=== PATIENT | male | born 1960 | race Caucasian/White ===

== ENCOUNTER 2020-10-12 14:55 | Inpatient (IN) ==
[2020-10-12] MEDS ORDERED: SODIUM CHLORIDE 0.9% 1000ML 1,000 ML IV ONE (16:34)
--- NOTE | 2020-10-12 16:40 | Emergency Department Note ---
Impression & Plan Weakness, Hypercalcemia, Hypokalemia, Hypophosphatemia ED Provider Note NAME: HECTOR MIXON AGE: 60 SEX: M : 1960 ARRIVES VIA: Walk-In INFORMANT: [Patient] ED PROVIDER(S): [Rashel Dillard MD] CHIEF COMPLAINT: Abnormal labs HISTORY OF PRESENT ILLNESS: The patient is a 60-year-old male who has noticed weakness. He has had some weight loss although, some of this has been intentional. The patient was told by his primary doctor's office that he likely has a malignancy, the site of the malignancy though is unknown. He went to the cancer center today and had some outpatient laboratory work. He was called and told to come back to the hospital as his calcium was critically high. The patient states that he did have prostate cancer however, the prostate was removed years ago. He has not had shortness of breath or cough. No fever, chills or congestion. He has had no urinary complaints. No vomiting or diarrhea. He has had a slightly decreased appetite. REVIEW OF SYSTEMS: See HPI for pertinent positives and negatives. A total of ten systems were reviewed and were otherwise negative. PMHx/PSHx: See Below SOCIAL HISTORY: See Below. PHYSICAL EXAM: GENERAL: Patient is in no acute distress. HEENT: No acute trauma, normocephalic atraumatic, mucous membranes moist, no nasal congestion, no scleral icterus. NECK: No stridor, no adenopathy, no meningismus, trachea is midline. LUNGS: Clear to auscultation bilaterally, no wheeze, no rhonchi, breath sounds equal. HEART: Without murmurs gallops or rubs, regular rate and rhythm. ABDOMEN: Soft, nontender, bowel sounds positive, no hernias, no peritonitis. EXTREMITIES: No cyanosis or edema, full range of motion of all the joints without pain or difficulty, no signs for acute trauma. NEUROLOGIC: Oriented x 3, no acute motor or sensory deficits, no focal weakness. SKIN: No rash, no jaundice, no diaphoresis. DIFFERENTIAL DIAGNOSIS: Infection, dehydration, metabolic abnormality, hypo/hyperglycemia, urgency, electrolyte disturbance, anemia, hypoxia, cardiac sources, intracerebral event, toxicologic, neurologic, as well as other pathologies. EMERGENCY DEPARTMENT COURSE/PROCEDURES: ECG: Indication was weakness. The ECG shows a normal sinus rhythm with some sinus arrhythmia. The rate is 75. There is no ST elevation, no PVCs. The QTc is 410 Continuous Cardiac Monitoring: An order was placed for continuous cardiac monitoring. The monitor shows a rate of 76 with normal sinus rhythm. MEDICAL DECISION MAKING: I was able to review the outpatient labs from earlier today. There was no leukocytosis. A very mild anemia was noted. There was a normal platelet count. There were some subtle LFT elevations, the bilirubin was normal. The PSA was normal. Calcium was elevated at 14.3. I did order some repeat laboratory testing. The calcium returned elevated at 15.8. The ionized calcium was high at 1.9. Phosphorus level was low at 1.8. Potassium was somewhat low at 3. There was no kidney failure. Covid testing returned negative. The patient received 1 L of IV saline to help with hydration and to help reduce his calcium elevation. The patient does require a hospital stay. His calcium is critically high. He requires a work-up to determine the source of the hypercalcemia, certainly, malignancy is a concern. The patient did have an ECG performed. This showed a sinus rhythm, no arrhythmia, no acute ischemia. The patient is aware of his findings, I spoke with case management. The on-call hospitalist was consulted. Past Med/Surg History Medical History Diabetes mellitus, type 2 Hyperlipidemia Hypertension Obesity, morbid Prostate cancer 2015--sx Sleep apnea cpap Surgical History History of arthroscopy of right knee History of carpal tunnel release right wrist History of colonoscopy History of endoscopic sinus surgery History of prostate biopsy malignant History of prostatectomy 2015 History of repair of anterior cruciate ligament of right knee History of tympanoplasty of right ear Hx of vasectomy Family History Grandmother Family history of diabetes mellitus paternal Father Family hx of colon cancer Social History Smoking Status: Never smoker Second Hand Exposure: Yes (father smoked); Hx Alcohol Use: Yes Alcohol type: beer Hx Substance Use: No Preferred Language: Kyrgyz Communication Ability: Effective Md Urologist Required: No Beliefs That Will Affect Care: None Current Living Situation: Spouse Feels Safe at Home: Yes Assistive Devices: CPAP Allergies Allergies Allergy/AdvReac Type Severity Reaction Status Date / Time Bactrim Allergy Unknown RASH Verified 08/13/15 08:50 sulfamethoxazole Allergy Unknown RASH Verified 10/12/20 16:58 trimethoprim Allergy Unknown RASH Verified 10/12/20 16:58 lisinopril AdvReac Mild hives Verified 10/12/20 16:58 Prinivil Allergy Unknown Uncoded 10/12/20 16:58 Home Meds Home Medications Medication Instructions Recorded Confirmed Culturelle 1 cap PO QAM 08/31/18 10/12/20 Lantus U-100 Insulin 80 unit SUBCUT HS 08/31/18 10/12/20 amlodipine 10 mg PO QAM 08/31/18 10/12/20 atorvastatin 10 mg PO HS 08/31/18 10/12/20 cholecalciferol (vitamin D3) 2,000 unit PO BID 08/31/18 10/12/20 docusate sodium 100 mg PO QAM 08/31/18 10/12/20 insulin aspart U-100 [Novolog 1 sliding scale dose SUBCUT UD 08/31/18 10/12/20 U-100 Insulin aspart] metformin 1,000 mg PO BID 08/31/18 10/12/20 tadalafil [Cialis] 20 mg PO DAILY PRN 08/31/18 10/12/20 valsartan-hydrochlorothiazide 1 tab PO QAM 08/31/18 10/12/20 [Diovan HCT] Results & Data (ED) Vital Signs Vital Signs - 24 hr 10/12/20 15:04 10/12/20 17:04 10/12/20 17:31 Temperature 36.5 C Temperature Source Oral Pulse Rate 100 H 74 Pulse Rate [Apical] 79 Pulse Rate from SpO2 Sensor 75 Pulse Rhythm [Apical] Regular Pulse Strength [Apical] Normal Respiratory Rate 18 16 18 Respiratory Effort / Characteristics Non-Labored Spontaneous Non-Labored Spontaneous Respiratory Depth Normal Normal Respiratory Pattern Regular Blood Pressure 166/84 H 131/73 Blood Pressure [Right Arm] 148/73 H Blood Pressure Mean 111 89 Blood Pressure Mean [Right Arm] 98 Blood Pressure Position [Right Arm] Semi-fowlers Pulse Oximetry 96 95 97 Oxygen Delivery Method Room Air Room Air Sepsis Recent Fever Within 48 Hours No Sepsis New/Unexplained Change in Mental Status No Sepsis Action Taken by Nursing No Action Required 10/12/20 17:46 10/12/20 17:50 10/12/20 17:53 Temperature Temperature Source Pulse Rate 72 72 72 Pulse Rate [Apical] Pulse Rate from SpO2 Sensor 72 Pulse Rhythm [Apical] Pulse Strength [Apical] Respiratory Rate 20 19 19 Respiratory Effort / Characteristics Respiratory Depth Respiratory Pattern Blood Pressure 140/79 Blood Pressure [Right Arm] Blood Pressure Mean 102 Blood Pressure Mean [Right Arm] Blood Pressure Position [Right Arm] Pulse Oximetry 99 Oxygen Delivery Method Sepsis Recent Fever Within 48 Hours Sepsis New/Unexplained Change in Mental Status Sepsis Action Taken by Nursing 10/12/20 17:54 10/12/20 18:00 10/12/20 18:01 Temperature Temperature Source Pulse Rate 71 73 79 Pulse Rate [Apical] Pulse Rate from SpO2 Sensor 72 71 79 Pulse Rhythm [Apical] Pulse Strength [Apical] Respiratory Rate 18 21 20 Respiratory Effort / Characteristics Respiratory Depth Respiratory Pattern Blood Pressure 139/75 Blood Pressure [Right Arm] Blood Pressure Mean 90 Blood Pressure Mean [Right Arm] Blood Pressure Position [Right Arm] Pulse Oximetry 99 97 100 Oxygen Delivery Method Sepsis Recent Fever Within 48 Hours Sepsis New/Unexplained Change in Mental Status Sepsis Action Taken by Nursing 10/12/20 18:30 10/12/20 18:31 10/12/20 18:58 Temperature Temperature Source Pulse Rate 77 78 Pulse Rate [Apical] Pulse Rate from SpO2 Sensor 78 78 Pulse Rhythm [Apical] Pulse Strength [Apical] Respiratory Rate 17 16 Respiratory Effort / Characteristics Respiratory Depth Respiratory Pattern Blood Pressure 162/82 H Blood Pressure [Right Arm] Blood Pressure Mean 114 Blood Pressure Mean [Right Arm] Blood Pressure Position [Right Arm] Pulse Oximetry 95 97 Oxygen Delivery Method Room Air Sepsis Recent Fever Within 48 Hours Sepsis New/Unexplained Change in Mental Status Sepsis Action Taken by Group Home Medications Current Medication List: was personally reviewed by me Laboratory Data Attestation: I reviewed the patient's lab results. Result diagrams: 10/12/20 17:04 10/12/20 17:04 Lab Results 10/12/20 10/12/20 10/12/20 Range/Units 17:04 17:47 17:47 Sodium 138 (136-145) mmol/L Potassium 3.0 L (3.5-5.1) mmol/L Chloride 104 (98-107) mmol/L Carbon Dioxide 27 (21-32) mmol/L Anion Gap 8.0 (3-11) BUN 11 (7-18) mg/dl Creatinine 1.34 (0.6-1.4) mg/dl Est Cr Clr Drug Dosing Not Reportable Est GFR ( Amer) 65.3 Est GFR (Non-Af Amer) 56.4 BUN/Creatinine Ratio 8.5 L (10-20) Glucose 131 H (70-99) mg/dl Calcium 15.8 H* (8.5-10.1) mg/dl Ionized Calcium 1.90 H* (1.12-1.32) mmol/L Phosphorus 1.8 L (2.5-4.9) mg/dl Magnesium 1.9 (1.8-2.4) mg/dl SARS-CoV-2 Ag (Rapid) Negative (Negative) Administered Medications Discontinued Medications Sodium Chloride (Nss 1000ml) 1,000 mls @ 999 mls/hr IV .Q1H1M ONE Stop: 10/12/20 17:34 Last Infusion: 10/12/20 18:35 Dose: 0 mls/hr Documented by: [id number] Admin: 10/12/20 17:19 Dose: 999 mls/hr Documented by: [id number] Discharge Plan Visit Data Chief Complaint: Abnormal Labs/Diagnostic Testing Stated Complaint: HYPERCALCEMIA ED Provider: Rashel Dillard Discharge Problem: Weakness, Hypercalcemia, Hypokalemia, Hypophosphatemia Patient Disposition: Admitted As Inpatient Condition: Good Discharge Instructions Interventions: ED Discharge Assessment Last Done: 10/12/20 18:58 Forms Stand Alone Forms: [facility] Prescriptions Prescriptions: No Action Lantus U-100 Insulin 100 unit/mL Solution 80 unit SUBCUT HS RF: 0 atorvastatin 10 mg Tablet 10 mg PO HS RF: 0 valsartan-hydrochlorothiazide [Diovan HCT] 160-12.5 mg Tablet 1 tab PO QAM RF: 0 amlodipine 10 mg Tablet 10 mg PO QAM RF: 0 insulin aspart U-100 [Novolog U-100 Insulin aspart] 100 unit/mL Solution 1 sliding scale dose SUBCUT UD RF: 0 metformin 1,000 mg Tablet 1,000 mg PO BID RF: 0 Culturelle 10 billion cell Capsule 1 cap PO QAM RF: 0 docusate sodium 100 mg Tablet 100 mg PO QAM RF: 0 tadalafil [Cialis] 20 mg Tablet 20 mg PO DAILY PRN (Reason: Sexual Activity) RF: 0 cholecalciferol (vitamin D3) 2,000 unit Tablet 2,000 unit PO BID RF: 0 Referrals Referrals: Kelly Dupree CRNP [Primary Care Provider] -
[2020-10-12 17:42] LABS: Blood Urea Nitrogen 11 mg/dl (7-18); Carbon Dioxide 27 mmol/L (21-32); Chloride 104 mmol/L (98-107); Est GFR (African American) 65.3; Est GFR (Non-African American) 56.4; Glucose 131 mg/dl (70-99); Magnesium 1.9 mg/dl (1.8-2.4); Phosphorus 1.8 mg/dl (2.5-4.9); Sodium 138 mmol/L (136-145)
[2020-10-12 18:34] LABS: BUN Creatinine Ratio 8.5 (10-20); Calcium 15.8 mg/dl (8.5-10.1)
--- NOTE | 2020-10-12 18:35 | History & Physical Report ---
Date of Service October 12, 2020 Assessment & Plan (1) Hypercalcemia: Mr. Noe is a 60 yo M with a PMHx of prostate cancer s/p prostatectomy 5 years ago who was admitted for hypercalcemia. - Ca level 14.3 on outpatient labs today, 15.78 repeat measurement; albumin normal - ionized calcium elevated to 1.9 - intact PTH level ordered - 25 hydroxvitamin D level ordered - given 1 liter of normal saline in the ED; will bolus with additional 2 liters of normal saline and start mIVF at 200mls hour - no history of CHF; if concern for volume overload, recommend adding IV lasix - if PTH level returns low, recommending ordering Zoledronic Acid and checking PTHrP level + 1,25 hydroxyvitamin D - as for the etiology: may be secondary to primary hyperparathyroidism vs. non- PTH mediated hypercalcemia (primary malignancy, vit D intoxication, granulomatous disease) - will hold home Valsartan-HCTZ combo pill, vit D supplement - hematology/oncology consulted; SPEP/UPEP, serum and urine immunofixation pending - trend level (2) History of prostate cancer: - diagnosed 5 years ago - s/p prostatectomy - PSA checked annual for last 5 years, all normal (3) Hypokalemia: - K low at 3.0; replacement ordered - CMP in AMP (4) Insulin dependent diabetes mellitus: - continue home dose of Lantus insulin (80 units qhs)+ sliding scale - A1c in am - hold home metformin - carb consistent diet - continue statin, ARB (5) Hypertension: - continue home amlodipine - hold home valsartan-HCTZ combo (givne HCTZ promotes calcium reabsorption). Will order Valsartan alone (6) Hypophosphatemia: - phos mildly low at 1.8 Dispo: Med/Surg with tele Diet: Carb consistent 2 Dvt ppx: SCDs, lovenox Cde: DNR/DNI, discussed with patient History of Present Illness Primary Care Provider: HERNANDO Winters Mr. Noe is a 60 yo M with a PMHx of prostate cancer status post prostatectomy 5 years ago who presented to the emergency department at the direction of Dr. Anderson from the cancer center earlier today. Mr. Noe was referred to the cancer center for evaluation of hypercalcemia detected on routine labwork ordered by his PCP KIRSTIN Winters. At his appointment with Dr. Anderson today at the cancer center, Mr. Noe's calcium level returned at 14.3, prompting Dr. Anderson's advice to come to the ED. Mr. Noe reports a history of fatigue over the past month, stating "all I ever seem to want to do is sleep." He reports a weight loss of 14 pounds over the past 3 months, but this was intentional (he has been walking more and trying to cut back on sugar/carb intake due to an elevated HbA1c). He also endorses constipation. He denies any muscle weakness, bone pain, or diminished concentration. He has had his PSA level checked annually since have his prostatectomy and states all his levels have been normal. He reports developing some urinary incontinence over the past two months. Aside from his prostate cancer, he has no other personal history of cancer diagnoses. Family history - Father diagnosed with colon cancer at age 72. Mr. Noe has had several colonoscopies - most recent in 2019. Meds- he is on Valsartan-HCTZ combo for HTN. He takes a vitamin D3 supplement. He is not on a calcium supplement. Not on lithium. ED Course: Ca level 15.7, ionized Ca at 1.9. Albumin normal at 4.0. Mag normal. Phos low at 1.8. Potassium low at 3.0. WBC normal. Hgb mildly low at 13.2. UA pending. UPEP and SPEP pending. IgG low, IgA low, IGM normal. Serum and Urine immunofixation and free kappa and jerome light chains pending. CXR showing no active disease. EKG normal sinus rhythm at 75 bpm without ectopy or ST segment changes. He was bolused with 1 liter of normal saline. Allergies Allergy/AdvReac Type Severity Reaction Status Date / Time Bactrim Allergy Unknown RASH Verified 08/13/15 08:50 sulfamethoxazole Allergy Unknown RASH Verified 10/12/20 16:58 trimethoprim Allergy Unknown RASH Verified 10/12/20 16:58 lisinopril AdvReac Mild hives Verified 10/12/20 16:58 Prinivil Allergy Unknown Uncoded 10/12/20 16:58 Home Medications Medication Instructions Recorded Confirmed Type Culturelle 1 cap PO QAM 08/31/18 10/12/20 History Lantus U-100 Insulin 80 unit SUBCUT HS 08/31/18 10/12/20 History amlodipine 10 mg PO QAM 08/31/18 10/12/20 History atorvastatin 10 mg PO HS 08/31/18 10/12/20 History cholecalciferol (vitamin D3) 2,000 unit PO BID 08/31/18 10/12/20 History docusate sodium 100 mg PO QAM 08/31/18 10/12/20 History insulin aspart U-100 [Novolog 1 sliding scale dose SUBCUT UD 08/31/18 10/12/20 History U-100 Insulin aspart] metformin 1,000 mg PO BID 08/31/18 10/12/20 History tadalafil [Cialis] 20 mg PO DAILY PRN 08/31/18 10/12/20 History valsartan-hydrochlorothiazide 1 tab PO QAM 08/31/18 10/12/20 History [Diovan HCT] Past Med/Surg History Medical History Diabetes mellitus, type 2 Hyperlipidemia Hypertension Obesity, morbid Prostate cancer 2014--sx Sleep apnea cpap Surgical History History of arthroscopy of right knee History of carpal tunnel release right wrist History of colonoscopy History of endoscopic sinus surgery History of prostate biopsy malignant History of prostatectomy 2014 History of repair of anterior cruciate ligament of right knee History of tympanoplasty of right ear Hx of vasectomy Family History Grandmother Family history of diabetes mellitus paternal Father Family hx of colon cancer Social History Smoking Status: Never smoker Second Hand Exposure: No; Do You Dip or Chew Tobacco: No; Tobacco Cessation Education Requested by Patient: No Hx Alcohol Use: Yes Alcohol type: beer Hx Substance Use: No Preferred Language: Trinidadian Communication Ability: Effective Dry Starch Operator Required: No Beliefs That Will Affect Care: None Current Living Situation: Spouse Feels Safe at Home: Yes Safety Concerns: Feels Safe At This Time Assistive Devices: CPAP Assistive Devices Comment: reading glasses Review of Systems Constitutional: + fatigue; no fever, no chills, no sweats and no weakness Gastrointestinal: + constipation Genitourinary: no urinary frequency Physical Exam Constitutional: well developed, well nourished, + obese and cooperative; no acute distress Eyes: + anicteric sclerae ENMT: external ear and nose normal, oropharynx normal Neck: normal visual inspection and trachea midline Respiratory: normal respiratory effort, lungs clear to auscultation Auscultation: no crackles, no rales, no rhonchi and no wheezes Cardiovascular: RRR, no murmur, no edema Heart Sounds: normal S1 and normal S2 Vessels: normal carotid upstroke; no carotid bruit Extremities: no pedal edema Gastrointestinal (Abdomen): normal bowel sounds, soft, nontender, no hepatosplenomegaly Skin: no rashes, warm and dry Psychiatric: A+Ox3, euthymic affect Genitourinary: no CVA tenderness Results & Data Results & Data ([facility]) Vital Signs (Past 12 Hours) Vital Signs Temp Pulse Pulse Resp BP BP Pulse Ox 10/12/20 17:53 72 19 140/79 99 10/12/20 17:50 72 19 10/12/20 17:46 72 20 10/12/20 17:31 74 18 131/73 97 10/12/20 17:04 79 16 148/73 H 95 10/12/20 15:04 36.5 C 100 H 18 166/84 H 96 Supervising Physician Co-Signing Physician Notes I personally saw and examined the patient. I verified all wolfe points and agree with resident physician Dr. Clarke with the following exceptions and/or additions: 60-year-old male referred from oncology due to hypercalcemia. Relatively asymptomatic from this although he has been having fatigue and constipation for the last month. No bone pain, change in mood. O/E obese male, chest CTAB, HS1+2, no murmurs abdo SNT, BS normal. Hypercalcemia - discontinue vitamin D and hydrochlorothiazide -doubtful these are causing the hypercalcemia alone. PTH low, vitamin D normal. Advised IV fluids as above with repeat calcium/albumin level in a.m. zoledronic acid given once PTH confirmed low. Will get PTH related peptide result from [facility] outpatient notes. Resident Activity Tracking Resident Involvement: Resident Care Provided Care Provided: [facility] Medicine
[2020-10-12] MEDS ORDERED: SODIUM CHLORIDE 0.9% 1000ML 2,000 ML IV ONE ×2 (19:22→19:49)
[2020-10-12] MEDS ORDERED: GLUCOSE 40% GEL 15 GM TUBE PO PRN (19:49)
[2020-10-12] MEDS ORDERED: POLYETHYLENE (MIRALAX) 17 GM PACK PO PRN (19:49)
[2020-10-12] MEDS ORDERED: CARBOHYDRATES FOR HYPOGLYCEMIA PO PRN (19:49)
[2020-10-12] MEDS ORDERED: ONDANSETRON INJ 2 MG/ML 2 ML VIAL IV PRN (19:49)
[2020-10-12] MEDS ORDERED: TADALAFIL 20 MG PO PRN (19:49)
[2020-10-12] MEDS ORDERED: GLUCAGON FOR INJ 1 MG VIAL SQ PRN (19:49)
[2020-10-12] MEDS ORDERED: GLUCOSE 10 TABS/TUBE PO PRN (19:49)
[2020-10-12] MEDS ORDERED: ACETAMINOPHEN 325 MG TAB PO PRN (19:49)
[2020-10-12] MEDS ORDERED: DEXTROSE 50% 50 ML SYRINGE IV PRN (19:49)
[2020-10-12] MEDS ORDERED: POTASSIUM CHLORIDE CRTAB 20 MEQ TABCR PO STA (20:04)
[2020-10-12] MEDS ORDERED: POTASSIUM PHOS 3 MMOL/1 ML INFUSION IV STA (20:05)
[2020-10-12] MEDS ORDERED: POTASSIUM PHOSPHATE 21 MMOL in SODIUM CHLORIDE 0.9% 500 ML IV STA (20:14)
[2020-10-12] MEDS ORDERED: PNEUMOCOCCAL ADMINISTRATION CHARGE ONE (20:30)
[2020-10-12] MEDS ORDERED: PNEUMOCOCCAL POLYSACCHARIDES 25 MCG/0.5 ML VIAL/SYR IM ONE (20:30)
[2020-10-12] MEDS ORDERED: LANTUS PER UNIT CHARGE SQ SCH (21:00)
[2020-10-12] MEDS: ATORVASTATIN 10 MG TAB PO SCH (21:13)
[2020-10-12] MEDS: INSULIN ASPART 100 UNITS/ML 3 ML PEN SC SCH (21:15)
[2020-10-12] MEDS: SODIUM CHLORIDE 0.9% 1000ML 1,000 ML IV SCH (21:32)
[2020-10-12] MEDS ORDERED: ZOLEDRONIC ACID 5 MG in EMPTY BAG 1 ML IV ONE (22:33)
[2020-10-13 00:53] LABS: Albumin Globulin Ratio 1.1 (0.9-2); Albumin Level 3.1 gm/dl (3.4-5.0); BUN Creatinine Ratio 8.1 (10-20); Bilirubin,Total 0.5 mg/dl (0.2-1); Calcium 13.5 mg/dl (8.5-10.1); Creatinine Clr Calc Pharmacy 79.2 ml/min; Est GFR (African American) 80.3; Est GFR (Non-African American) 69.3; Globulin 2.8 gm/dl (2.5-4.0); Potassium 2.9 mmol/L (3.5-5.1); Total Protein 5.9 gm/dl (6.4-8.2)
[2020-10-13] MEDS: SODIUM CHLORIDE 0.9% 1000ML 1,000 ML IV SCH (03:13)
[2020-10-13 07:30] LABS: Estimated Average Glucose 148 mg/dl; Hemoglobin A1C 6.8 % (4.5-5.6)
[2020-10-13 08:09] LABS: Albumin Globulin Ratio 1.1 (0.9-2); Albumin Level 3.2 gm/dl (3.4-5.0); Bilirubin,Total 0.6 mg/dl (0.2-1); Calcium 13.2 mg/dl (8.5-10.1); Creatinine Clr Calc Pharmacy 84.4 ml/min; Est GFR (African American) 86.8; Est GFR (Non-African American) 74.8; Globulin 2.9 gm/dl (2.5-4.0); Phosphorus 1.9 mg/dl (2.5-4.9); Potassium 3.3 mmol/L (3.5-5.1); Prostate Specific Antigen 0.02 ng/ml (0-4); Total Protein 6.1 gm/dl (6.4-8.2)
[2020-10-13] MEDS: VALSARTAN 80 MG TAB PO SCH (08:56)
[2020-10-13] MEDS: amLODIPine BESYLATE 5 MG TAB PO SCH (08:56)
[2020-10-13] MEDS: DOCUSATE SODIUM 100 MG CAP PO SCH (08:56)
[2020-10-13] MEDS: ADVANCED PROBIOTIC 1250 MG CAPSULE PO SCH (08:58)
[2020-10-13] MEDS: ENOXAPARIN INJ 40 MG/0.4 ML SYR SQ SCH (08:59)
[2020-10-13] MEDS: INSULIN ASPART 100 UNITS/ML 3 ML PEN SC SCH ×4 (09:00→20:26)
--- NOTE | 2020-10-13 11:08 | Billing Data ---
Date of Service October 12, 2020 Coding Level of Care Code 79491 Initial Inpt Care Lvl 2
--- NOTE | 2020-10-13 12:45 | Hospitalist Progress Note ---
Date of Service October 13, 2020 Assessment & Plan (1) Hypercalcemia: Improved overnight, but still elevated s/p IVF and zolendronic acid x1 Onc c/s, other labs still pending CT AP, chest pending Bone scan pending PTH is low, vit D WNL HypoPhos (2) History of prostate cancer: PSA essentially neg (3) Hypokalemia: Monitor (4) Insulin dependent diabetes mellitus: A1c 6.8 Pt notes he has been working on portion control, diet, exercise and has lost weight in the last few months (5) Hypertension: continue home meds (6) Hypophosphatemia: Monitor (7) NAZIA (obstructive sleep apnea): CPAP as at home, using [facility] provided equipment currently Describes daytime somnolence and overall fatigue Possibly needs settings adjusted? Overnight pulse ox during admission, likely needs repeat study vs follow up with pulm/sleep medicine for setting adjustment (8) DVT prophylaxis: Lovenox for DVT proph Admission and Anticipated Discharge Date Admission Date: October 12, 2020 Subjective Pt states he feels about his usual. He had a bowel movement this AM after not having one yesterday and feels that this makes him feel better in general. Tolerating PO without issue. Pt denies fever, SOB, chest pain, abd pain, n/v/c/d, LE pain or swelling. States he is generally tired and sleeps for 1-2 hours every afternoon. He also notes that when he sits down to watch television, he falls asleep almost right away. He has NAZIA and states he uses his CPAP every night. Again notes about his weight loss, although he has been working on portion control and sugar/carb intake, as well as walking. He noted a decrease in his A1c during this time and was quite pleased when I told him it was further decreased today. Review of Systems Review of Systems: Pertinent positives and negatives reviewed in HPI--all others negative Physical Exam Constitutional: WD/WN, vitals as above + obese Eyes: normal visual paz by confrontation and + anicteric sclerae Neck: normal visual inspection and trachea midline Respiratory: normal respiratory effort, lungs clear to auscultation Cardiovascular: Rate/Rhythm: regular rate and regular rhythm Gastrointestinal (Abdomen): Inspection/Auscultation: abdomen not distended Percussion/Palpation: abdomen soft; abdomen nontender Musculoskeletal: Head/Neck/Chest: normocephalic and head atraumatic negative for edema, peripheral pulses intact Skin: no rashes, warm and dry Neurologic: awake; not confused Speech / Cognition: normal speech Psychiatric: A+Ox3, euthymic affect Results & Data Results & Data ([facility]) Vital Signs (Past 12 Hours) Vital Signs Temp Pulse Pulse Resp BP Pulse Ox 10/13/20 11:17 36.9 C 73 20 136/76 97 10/13/20 07:10 36.4 C L 78 18 133/74 95 10/13/20 07:00 69 10/13/20 03:38 36.5 C 65 20 113/68 96 10/13/20 02:32 64 PG Care Time/CCT Total # of Minutes Spent Total Time Spent with Patient: Total time spent is greater than 50% in coordination of care (as documented) at patient's floor/unit and/or counseling patient: Coding Level of Care Code 93314 Subseq Hosp Care Lvl 3 Diagnoses Hypercalcemia E83.52 History of prostate cancer Z85.46 Hypokalemia E87.6 Insulin dependent diabetes mellitus Hypertension I10 Hypophosphatemia E83.39 NAZIA (obstructive sleep apnea) G47.33 DVT prophylaxis Z29.9
--- NOTE | 2020-10-13 14:25 | Electrocardiogram Report ---
Test Reason : Blood Pressure : / mmHG Vent. Rate : 075 BPM Atrial Rate : 075 BPM P-R Int : 204 ms QRS Dur : 110 ms QT Int : 368 ms P-R-T Axes : 047 -17 004 degrees QTc Int : 410 ms Normal sinus rhythm with sinus arrhythmia Nonspecific ST abnormality Abnormal ECG When compared with ECG of 29-JUL-2015 15:56, T wave amplitude has decreased in Anterior leads QT has shortened Confirmed by Han Velasquez ([id number]) on 10/13/2020 2:24:49 PM Referred By: Rahul Anderson Confirmed By:Han Velasquez
--- NOTE | 2020-10-13 14:49 | Electrocardiogram Report ---
Test Reason : Blood Pressure : / mmHG Vent. Rate : 062 BPM Atrial Rate : 062 BPM P-R Int : 204 ms QRS Dur : 108 ms QT Int : 396 ms P-R-T Axes : 046 031 017 degrees QTc Int : 401 ms Normal sinus rhythm Nonspecific ST abnormality Abnormal ECG When compared with ECG of 12-OCT-2020 16:57, (unconfirmed) No significant change was found Confirmed by Han Velasquez ([id number]) on 10/13/2020 2:48:58 PM Referred By: Rahul Anderson Confirmed By:Han Velasquez
[2020-10-13] MEDS ORDERED: IOVERSOL 100ml IV ONE (15:02)
--- NOTE | 2020-10-13 15:22 | Consultation ---
Date of Consultation October 13, 2020 Assessment & Plan (1) Hypercalcemia: 60 y/o male who presents for evaluation of hypercalcemia with low PTH and elevated PTHrp. Worrisome for underlying malignancy. Patient has hx of prostate cancer s/p prostatectomy 5 years ago but his PSA is stable. Patient reports anorexia, fatigue, weight loss, and constipation. No hx of bone pain or bone fractures. - received Zometa x 1 dose - awaiting MM panel - obtain bone scan, CT CAP w/ contrast - went over differential diagnosis of secondary hypercalcemia (malignancy, lymphoma, myeloma, granulomatous disease, etc) - patient can be discharged home when medically stable - followup as an outpatient with Dr. Anderson - discussed with Dr. Chan Present on Admission?: Yes (2) Prostate cancer: Ramon 7 prostate cancer, pT3. S/p prostatectomy in [address] Muñoz stable PSA levels so far Present on Admission?: Yes History of Present Illness Requesting Physician: Nichole Clarke MD Reason for Consultation: Hypercalcemia At tending Physician: Cecile Chan DO History of Present Illness 60 y/o male with hx of prostate cancer status post prostatectomy 5 years ago who was seen in Cancer Clinic by Dr. Anderson for evaluation of hypercalcemia. Mr. Noe was referred by his PCP KIRSTIN Winters. At the cancer center, Mr. Noe's calcium level returned at 14.3, prompting inpatient admission for treatment and further workup. Patient reports a history of fatigue over the past month, stating "all I ever seem to want to do is sleep." He reports a weight loss of 14 pounds over the past 3 months. He also endorses constipation. He denies any muscle weakness, bone pain, or diminished concentration. He has had his PSA level checked annually since have his prostatectomy and states all his levels have been normal. He reports developing some urinary incontinence over the past two months. Aside from his prostate cancer, he has no other personal history of cancer diagnoses. Since admission, patient received IVF and one dose of Reclast. Patient was seen and examined at bedside. Remains stable with no new complaints or symptoms. Allergies Allergy/AdvReac Type Severity Reaction Status Date / Time Bactrim Allergy Unknown RASH Verified 08/13/15 08:50 sulfamethoxazole Allergy Unknown RASH Verified 10/12/20 16:58 trimethoprim Allergy Unknown RASH Verified 10/12/20 16:58 lisinopril AdvReac Mild hives Verified 10/12/20 16:58 Prinivil Allergy Unknown Uncoded 10/12/20 16:58 Home Medications Medication Instructions Recorded Confirmed Type Culturelle 1 cap PO QAM 08/31/18 10/12/20 History Lantus U-100 Insulin 80 unit SUBCUT HS 08/31/18 10/12/20 History amlodipine 10 mg PO QAM 08/31/18 10/12/20 History atorvastatin 10 mg PO HS 08/31/18 10/12/20 History cholecalciferol (vitamin D3) 2,000 unit PO BID 08/31/18 10/12/20 History docusate sodium 100 mg PO QAM 08/31/18 10/12/20 History insulin aspart U-100 [Novolog 1 sliding scale dose SUBCUT UD 08/31/18 10/12/20 History U-100 Insulin aspart] metformin 1,000 mg PO BID 08/31/18 10/12/20 History tadalafil [Cialis] 20 mg PO DAILY PRN 08/31/18 10/12/20 History valsartan-hydrochlorothiazide 1 tab PO QAM 08/31/18 10/12/20 History [Diovan HCT] Patient History Medical History (Updated 10/13/20 @ 15:15 by Rahul Anderson MD) Diabetes mellitus, type 2 Hyperlipidemia Hypertension Obesity, morbid Prostate cancer 2014--sx Sleep apnea cpap Surgical History History of arthroscopy of right knee History of carpal tunnel release right wrist History of colonoscopy History of endoscopic sinus surgery History of prostate biopsy malignant History of prostatectomy 2014 History of repair of anterior cruciate ligament of right knee History of tympanoplasty of right ear Hx of vasectomy Family History Grandmother Family history of diabetes mellitus paternal Father Family hx of colon cancer Social History Smoking Status: Never smoker Second Hand Exposure: No; Do You Dip or Chew Tobacco: No; Tobacco Cessation Education Requested by Patient: No Hx Alcohol Use: Yes Alcohol type: beer Hx Substance Use: No Preferred Language: Setswana Communication Ability: Effective Manager Transportation Required: No Beliefs That Will Affect Care: None Current Living Situation: Spouse Feels Safe at Home: Yes Safety Concerns: Feels Safe At This Time Assistive Devices: CPAP Assistive Devices Comment: reading glasses Review of Systems Review of Systems: All systems reviewed & are unremarkable except as noted in HPI & below Physical Exam Constitutional: WD/WN, vitals as above well developed and well nourished Eyes: PERRL, conjunctivae normal, anicteric sclerae + anicteric sclerae and PERRL ENMT: external ear and nose normal, oropharynx normal Neck: trachea midline, no thyromegaly Respiratory: normal respiratory effort, lungs clear to auscultation Auscultation: lungs clear to auscultation bilaterally Cardiovascular: RRR, no murmur, no edema Rate/Rhythm: regular rate and regular rhythm Gastrointestinal (Abdomen): normal bowel sounds, soft, nontender, no hepatosplenomegaly Musculoskeletal: no cyanosis or clubbing, extremities motor strength 5/5 Skin: no rashes, warm and dry Neurologic: patellar DTR's 2+ bilat, sensation intact Psychiatric: A+Ox3, euthymic affect Lymphatic: no cervical or axillary lymphadenopathy Results & Data ([facility]) Vital Signs (Past 12 Hours) Vital Signs Temp Pulse Pulse Resp BP Pulse Ox 10/13/20 11:17 36.9 C 73 20 136/76 97 10/13/20 07:10 36.4 C L 78 18 133/74 95 10/13/20 07:00 69 10/13/20 03:38 36.5 C 65 20 113/68 96
--- NOTE | 2020-10-13 15:26 | CT Scan Report ---
CT OF THE ABDOMEN AND PELVIS WITH CONTRAST CLINICAL HISTORY: Hypercalcemia. COMPARISON STUDY: CT of the abdomen and pelvis October 04, 2013. TECHNIQUE: Following IV administration of 94 mL of Optiray-320, axial images of the abdomen and pelvi s were obtained from the lung bases to the proximal femurs. Images were reviewed in the axial, sagitt al, and coronal planes. IV contrast was administered without complication. Automated exposure contro l was utilized for the study. A dose lowering technique was utilized adhering to the principles of A JUDI. Oral contrast was administered. CT DOSE: 2252.72 mGy.cm FINDINGS: Please note that the chest CT will be reported separately. Note is made of multiple hyperva scular hepatic lesions which are better depicted on the chest CT due to the phase of enhancement. The largest is a 6.9 x 6.5 cm right hepatic dome lesion. There is also a 5.4 x 4.7 cm segment 6 hepatic lesion. No biliary or pancreatic ductal dilatation is noted. Note is made of enhancing mass within th e pancreatic tail that measures 6.6 x 5 cm. This contains a calcification. Tumor thrombus within the splenic vein is noted. The splenic vein is occluded and distended. Note is made of a resultant periga stric varices. The adrenal glands and kidneys are unremarkable. Is no hydronephrosis. There is no kamar dence for a bowel obstruction. The appendix is normal. Colonic diverticulosis is noted without eviden ce for acute diverticulitis. No abdominal or pelvic lymphadenopathy is present. No suspicious lesions are identified within visualized skeletal structures. Prostate is surgically absent. IMPRESSION: 1. 6.6 x 5 cm enhancing pancreatic tail mass with associated tumor thrombus that occludes the splenic vein. This is consistent with a neoplasm. Although statistically this represents an adenocarcinoma, the imaging appearance raises the possibility of a malignant pancreatic islet cell tumor. GI consulta tion is recommended. 2. Numerous hypervascular hepatic metastases that measure up to 6.9 x 6.5 cm. ACT 112: Negative or not required by law. Electronically signed by: Kehinde Caro M.D. 10/13/2020 3:25 PM
--- NOTE | 2020-10-13 15:28 | Nuclear Medicine Report ---
NM bone scan whole body HISTORY: 60 years-old Male hypercalcemia history of prostate cancer. COMPARISON: CT chest, abdomen and pelvis of same day, bone scan 06/15/2015 TECHNIQUE: Anterior and posterior all body planar bone scan sonographic images were obtained followin g the intravenous administration of 24.3 mCi technetium 99 MDP administered via the left upper extrem ity. FINDINGS: Degenerative periarticular uptake is most pronounced within the knees. There is physiologic uptake no darien within the kidneys, urinary bladder and soft tissues. Uptake within the frontal calvarium is note d symmetrically which is more pronounced than prior. No definite suspicious uptake identified to sugg est metastasis. IMPRESSION: 1. Mild radiotracer uptake within the frontal calvarium likely represents hyperostosis frontalis inte rna. This could be confirmed with CT of the head. 2. No definite evidence of osseous metastatic disease. ACT 112: Negative or not required by law. The above report was generated using voice recognition software. It may contain grammatical, syntax o r spelling errors. Electronically signed by: Bradford Mcfadden M.D. 10/13/2020 3:26 PM
--- NOTE | 2020-10-13 15:30 | CT Scan Report ---
CHEST CT WITH CONTRAST CT DOSE: HISTORY: hypercalcemia TECHNIQUE: Multiaxial CT images of the chest were performed following the intravenous administration of contrast. A dose lowering technique was utilized adhering to the principles of ALARA. COMPARISON: Chest CT 03/31/2011. FINDINGS: Multiple hepatic masses high suspicious for metastatic disease. This is better appreciated on the same day abdomen and pelvis CT. Dominant heterogeneous enhancing mass within the right hepatic lobe measures 6.1 cm. No mediastinal or hilar lymphadenopathy. The heart is normal in size. No pleur al or pericardial effusions. Mediastinal vascular structures are within normal limits for age. No vernell picious lytic or blastic osseous lesions. A few small scattered calcifications within the bilateral p osterior pleura. No focal lung consolidations to suggest pneumonia. No suspicious pulmonary nodules i dentified.. No pneumothorax. No pleural or pericardial effusions. The central airways are patent. IMPRESSION: 1. Multiple hepatic masses suspicious for metastatic disease. This is better appreciated on the same day abdomen and pelvis CT. 2. No pulmonary nodules or metastatic disease identified within the chest. ACT 112: Negative or not required by law. Electronically signed by: Prem Kasper M.D. 10/13/2020 3:29 PM
[2020-10-13] MEDS: INSULIN GLARGINE SOLOSTAR 100 UNITS/ML 3 ML PEN SC SCH (20:27)
[2020-10-13] MEDS: ATORVASTATIN 10 MG TAB PO SCH (20:28)
[2020-10-14] MEDS: amLODIPine BESYLATE 5 MG TAB PO SCH (08:00)
[2020-10-14] MEDS: VALSARTAN 80 MG TAB PO SCH (08:00)
[2020-10-14] MEDS: ADVANCED PROBIOTIC 1250 MG CAPSULE PO SCH (08:00)
[2020-10-14] MEDS: ENOXAPARIN INJ 40 MG/0.4 ML SYR SQ SCH (08:01)
[2020-10-14] MEDS: DOCUSATE SODIUM 100 MG CAP PO SCH (08:01)
[2020-10-14] MEDS: INSULIN ASPART 100 UNITS/ML 3 ML PEN SC SCH ×4 (08:05→20:15)
--- NOTE | 2020-10-14 08:39 | Consultation Report ---
DATE OF CONSULTATION: 10/14/2020 REASON FOR CONSULTATION: Metastatic adenocarcinoma suspect pancreatic primary. HISTORY OF PRESENT ILLNESS: The patient is a very pleasant, unfortunate gentleman who was admitted to [facility] on 10/12/2020 with hypercalcemia. Earlier in the day, this gentleman was seen by my manager distribution Dr. Rahul Anderson in clinic regarding elevated calcium. His calcium was in excess of 14.3 and was prompted by Dr. Anderson to come to the Emergency Room expediently. The patient states over the past several weeks, he has been battling with constipation and while deer hunting noticed his balance was significantly off concerning him. He also reports a 15-pound weight loss over the past couple of months; however, initially was trying to lose weight to better control his blood sugars as he suffers from diabetes mellitus. The patient also relates a decrease in his overall appetite, which obviously concerned him as well. Thus, upon presentation, he underwent CT scan of the chest, abdomen and pelvis, review of the abdomen and pelvis 6.6 x 5 cm enhancing pancreatic tail mass with associated tumor thrombus which occludes the splenic vein consistent with neoplasm. Also, multiple hepatic lesions are also seen measure up to 6.9 x 6.5 cm. Formal biopsy is yet to be carried out. CT scan of the chest revealed no evidence of intrapulmonary disease. Bone scan was essentially negative for osseous metastatic disease. This gentleman has appropriate outpatient followup with Dr. Anderson on 10/21/2020 and thus need to proceed with formal biopsy and MediPort placement with the anticipation of offering salvage chemotherapy. PAST MEDICAL HISTORY: Includes type 2 diabetes mellitus, hyperlipidemia, hypertension, morbid obesity, prostate cancer, obstructive sleep apnea. PAST SURGICAL HISTORY: Includes arthroscopy of the right knee, carpal tunnel release, colonoscopy, endoscopic sinus surgery, history of prostate biopsy, history of prostatectomy in 2015, history of anterior cruciate ligament, right knee and tympanoplasty of right ear, history of vasectomy. MEDICATIONS: Prior to admission include Cialis 20 mg p.o. daily, valsartan-hydrochlorothiazide 1 tablet p.o. every day, metformin 1000 mg p.o. b.i.d., insulin aspart U-100 sliding scale, docusate sodium 100 mg p.o. daily, cholecalciferol 2000 units p.o. b.i.d., atorvastatin 10 mg p.o. daily, amlodipine 10 mg p.o. daily, Lantus U-100 insulin 8 units subQ at bedtime, Culturelle 1 capsule p.o. every day. ALLERGIES: BACTRIM,TRIMETHOPRIM, LISINOPRIL, PRINIVIL. SOCIAL HISTORY: The patient is retired. He lives with his . He does consume beer on a regular basis. He is a nonsmoker, otherwise. FAMILY HISTORY: Father with history of colorectal cancer. Grandmother on the father's side also suffered from diabetes mellitus. REVIEW OF SYSTEMS: CONSTITUTIONAL: As per HPI, most notably for anorexia and a 15-pound weight loss. No fevers, chills or sweats. SKIN: No history of rashes or lesions. No diagnosed dermatoses. HEENT: Denies headaches, lightheadedness or dizziness. No acute visual or hearing deficits. No sinus symptoms, sore throat or dysphagia. LYMPH: No history of lymphoproliferative disease. CARDIAC: No history of coronary artery disease, no angina or palpitations. PULMONARY: No history of COPD. He is not short of breath, dyspneic or orthopneic. No cough or hemoptysis. GASTROINTESTINAL: Negative for abdominal pain. Negative for nausea and vomiting. Positive for constipation. No diarrhea. No hematochezia or melena stools. GENITOURINARY: History of prostate cancer status post prostatectomy. No current dysuria or hematuria. ENDOCRINE: Positive for type 2 diabetes mellitus. No history of thyroid disease. MUSCULOSKELETAL: Was having some knee arthralgias he noticed while deer hunting, but otherwise no history of musculoskeletal disease. NEUROLOGIC: Negative for seizure, stroke, or migraine headache. He does report gait imbalance. Again, most likely attributable to hypercalcemia. HEMATOLOGIC: No history of anemia, thrombophilia or bleeding diathesis. PHYSICAL EXAMINATION: GENERAL: Very pleasant 60-year-old gentleman, awake, alert and appropriate, in no acute distress. VITAL SIGNS: Temperature 37.5, pulse 85, respiratory rate 18, blood pressure 138/71. SKIN: Warm, dry, noncyanotic without petechia, rash or ecchymosis. HEENT: Head is atraumatic, normocephalic. Eyes: PERRLA, EOMI. Sclerae nonicteric. No conjunctival injection. Nares patent without rhinorrhea or discharge. Throat is clear. Tongue midline. Mucous membranes are moist. NECK: Supple without JVD or thyromegaly. LYMPHATICS: No cervical, supraclavicular, axillary or inguinal palpable nodes. HEART: Regular rate and rhythm. No clicks, rubs, murmurs or gallops. LUNGS: Clear to auscultation bilaterally. ABDOMEN: Soft, nontender, nondistended, without palpable hepatosplenomegaly. No rigidity or guarding. EXTREMITIES: Musculoskeletal strength and pulses are equal in all 4 quadrants. No clubbing, cyanosis or edema. NEUROLOGICALLY: He is awake, alert and oriented x3. Cranial nerves grossly intact. LABORATORY DATA: Calcium 13.2. Sodium 144, potassium 3.3, chloride 112, carbon dioxide 27, creatinine 1.06, BUN 10. RADIOGRAPHIC DATA: CT scan of the abdomen and pelvis reveals a pancreatic tail lesion with associated hepatic metastatic disease. IMPRESSION: 1. Probable metastatic pancreatic cancer. 2. Hypercalcemia associated with malignancy. 3. Type 2 diabetes mellitus. 4. Mild hypoalbuminemia. PLAN: It was my pleasure to meet Mr. Noe on Dr. Rahul Anderson's behalf. Dr. Anderson is our locum tenen here at [facility] and saw the patient in outpatient clinic. Dr. Anderson was consulted for hypercalcemia and on a repeat measurement calcium was well over 14, probably a bit higher, corrected with albumin. Mr. Noe was recommended to go immediately to the Emergency Room for admission. A CT scan of the chest, abdomen and pelvis clearly indicated this gentleman is most likely suffering from metastatic adenocarcinoma, probably pancreatic origin as the main lesion involves pancreatic tail. Jerrell unfortunately also has innumerable hepatic metastatic lesions. Obviously, these findings are troubling. Again, formal biopsy either by ERCP or perhaps ultrasound guided liver biopsy should confirm the diagnosis.. Additionally, would have general surgery, place a MediPort in anticipation of salvage chemotherapy. Without getting into specifics, advised this gentleman this is not a curative situation and any salvage treatment recommended is strictly to extend his life while trying to maintain quality. This gentleman definitely should be on prophylactic anticoagulation during his stay. We will advise Dr. Anderson of the radiographic findings and outpatient followup has already been established. Fortunately, the patient is not experiencing any pain at this time. Generally pancreatic lesions can cause epigastric pain with reference to the spine through the appropriate dermatome. Thus far, he has been fortunate in this regard. I have nothing further to add at this time, but will continue to follow him periodically during his stay. Thank you very much for allowing us to participate in his care. BAN
[2020-10-14 10:33] LABS: BUN Creatinine Ratio 7.7 (10-20); Calcium 12.2 mg/dl (8.5-10.1); Creatinine Clr Calc Pharmacy 74.3 ml/min; Est GFR (African American) 74.7; Est GFR (Non-African American) 64.4; Magnesium 1.8 mg/dl (1.8-2.4); Phosphorus 1.2 mg/dl (2.5-4.9); Potassium 3.1 mmol/L (3.5-5.1)
[2020-10-14] MEDS ORDERED: POTASSIUM PHOS 3 MMOL/1 ML INFUSION IV STA (10:44)
--- NOTE | 2020-10-14 11:09 | Surgery Consultation ---
Date of Consultation October 14, 2020 Assessment & Plan (1) Pancreatic mass: This is a 60yM with a PMH of DM2, NAZIA, history of prostate ca s/p prostatectomy 5 years ago who presented to the [facility] ED on 10/12/20 as a referral for elevated calcium. Workup with a CT a/p has revealed a 6.6 x 5 cm enhancing pancreatic tail mass with associated tumor thrombus that occludes the splenic vein, consistent with a neoplasm. Numerous hypervascular hepatic metastases that measure up to 6.9 x 6.5 cm. Patient is to undergo liver biopsy tomorrow for diagnosis. Oncology has recommended port placement for salvage chemo. We will add patient to the OR board for port placement for tomorrow. NPO at midnight. Dr. Rubio has seen patient and obtained consent. as above. agree he is a candidate. discussed options and risks of procedure ( bleeding/infection/infection or malfuntion requiring explant, dvt/pe /mi/cva/pneumothorax/vascular injury etc.... questions answered. pt agreeable. will procede tomorrow with subclavian mediport placement. History of Present Illness Attending Physician: Cecile Chan DO History of Present Illness This is a 60yM with a PMH of DM2, NAZIA, history of prostate ca s/p prostatectomy 5 years ago who presented to the [facility] ED on 10/12/20 as a referral for elevated calcium. Patient reports that he went to his [facility] to get lab work for his diabetes who noted the patient had an elevated calcium. He was ultimately referred to oncology who on Monday repeated his calcium and again noted it to be high. He was then asked to present to the ED for further evaluation where workup with a CT a/p revealed a 6.6 x 5 cm enhancing pancreatic tail mass with associated tumor thrombus that occludes the splenic vein, consistent with a neoplasm. There are also numerous hypervascular hepatic metastases that measure up to 6.9 x 6.5 cm. Patient's Ca level 15.8. Patient was admitted under medicine with oncology consultation. Patient repots he has been more noticeably fatigued over the last 3 weeks. He reports losing weight 14lbs since June, but reports he was intentionally trying to lose weight to improve his diabetes. He states he has been sleeping and taken frequent naps throughout the day which is unlike him. He denies any fevers/chills, chest pain/SOB, jaundice, change in color of stools. He does report a dull ache in the abdomen over the past 2 weeks Allergies Allergy/AdvReac Type Severity Reaction Status Date / Time Bactrim Allergy Unknown RASH Verified 08/13/15 08:50 sulfamethoxazole Allergy Unknown RASH Verified 10/12/20 16:58 trimethoprim Allergy Unknown RASH Verified 10/12/20 16:58 lisinopril AdvReac Mild hives Verified 10/12/20 16:58 Prinivil Allergy Unknown Uncoded 10/12/20 16:58 Home Medications Medication Instructions Recorded Confirmed Type Culturelle 1 cap PO QAM 08/31/18 10/12/20 History Lantus U-100 Insulin 80 unit SUBCUT HS 08/31/18 10/12/20 History amlodipine 10 mg PO QAM 08/31/18 10/12/20 History atorvastatin 10 mg PO HS 08/31/18 10/12/20 History cholecalciferol (vitamin D3) 2,000 unit PO BID 08/31/18 10/12/20 History docusate sodium 100 mg PO QAM 08/31/18 10/12/20 History insulin aspart U-100 [Novolog 1 sliding scale dose SUBCUT UD 08/31/18 10/12/20 History U-100 Insulin aspart] metformin 1,000 mg PO BID 08/31/18 10/12/20 History tadalafil [Cialis] 20 mg PO DAILY PRN 08/31/18 10/12/20 History valsartan-hydrochlorothiazide 1 tab PO QAM 08/31/18 10/12/20 History [Diovan HCT] Patient History Medical History (Updated 10/14/20 @ 12:44 by Precious Nagel PA-C) Diabetes mellitus, type 2 Hyperlipidemia Hypertension Obesity, morbid Prostate cancer 2014--sx Sleep apnea cpap Surgical History History of arthroscopy of right knee History of carpal tunnel release right wrist History of colonoscopy History of endoscopic sinus surgery History of prostate biopsy malignant History of prostatectomy 2014 History of repair of anterior cruciate ligament of right knee History of tympanoplasty of right ear Hx of vasectomy Family History Grandmother Family history of diabetes mellitus paternal Father Family hx of colon cancer Social History Smoking Status: Never smoker Second Hand Exposure: No; Do You Dip or Chew Tobacco: No; Tobacco Cessation Education Requested by Patient: No Hx Alcohol Use: Yes Alcohol type: beer Hx Substance Use: No Preferred Language: Greek Communication Ability: Effective Automotive Diagnostic Technician Required: No Beliefs That Will Affect Care: None Current Living Situation: Spouse Feels Safe at Home: Yes Safety Concerns: Feels Safe At This Time Assistive Devices: Glasses Assistive Devices Comment: reading glasses Review of Systems Constitutional: + fatigue, + anorexia and + weight loss; no fever and no chills Respiratory: no dyspnea Cardiovascular: no chest pain Gastrointestinal: + abdominal pain (dull belly ache over past 2 weeks) and + constipation; no nausea and no vomiting Integumentary: no yellowing of the skin Physical Exam Physical Exam: awake/alert Constitutional: well developed and well nourished; no acute distress Respiratory: normal respiratory effort Gastrointestinal (Abdomen): Inspection/Auscultation: abdomen not distended Percussion/Palpation: abdomen soft; abdomen nontender Results & Data ([facility]) Vital Signs (Past 12 Hours) Vital Signs Temp Pulse Pulse Pulse Resp BP BP 10/14/20 07:49 36.8 C 83 20 143/77 H 10/14/20 07:03 85 10/14/20 05:18 77 10/14/20 04:13 37.5 C 69 18 138/71 10/14/20 02:21 66 10/14/20 02:12 71 10/13/20 23:40 36.8 C 90 17 145/70 H Pulse Ox Pulse Ox 10/14/20 07:49 96 10/14/20 07:03 10/14/20 05:18 93 10/14/20 04:13 98 10/14/20 02:21 10/14/20 02:12 93 10/13/20 23:[address] OF THE ABDOMEN AND PELVIS WITH CONTRAST CLINICAL HISTORY: Hypercalcemia. COMPARISON STUDY: CT of the abdomen and pelvis October 04, 2013. TECHNIQUE: Following IV administration of 94 mL of Optiray-320, axial images of the abdomen and pelvis were obtained from the lung bases to the proximal femurs. Images were reviewed in the axial, sagittal, and coronal planes. IV contrast was administered without complication. Automated exposure control was utilized for the study. A dose lowering technique was utilized adhering to the principles of ALARA. Oral contrast was administered. CT DOSE: 2252.72 mGy.cm FINDINGS: Please note that the chest CT will be reported separately. Note is made of multiple hypervascular hepatic lesions which are better depicted on the chest CT due to the phase of enhancement. The largest is a 6.9 x 6.5 cm right hepatic dome lesion. There is also a 5.4 x 4.7 cm segment 6 hepatic lesion. No biliary or pancreatic ductal dilatation is noted. Note is made of enhancing mass within the pancreatic tail that measures 6.6 x 5 cm. This contains a calcification. Tumor thrombus within the splenic vein is noted. The splenic vein is occluded and distended. Note is made of a resultant perigastric varices. The adrenal glands and kidneys are unremarkable. Is no hydronephrosis. There is no evidence for a bowel obstruction. The appendix is normal. Colonic diverticulosis is noted without evidence for acute diverticulitis. No abdominal or pelvic lymphadenopathy is present. No suspicious lesions are identified within visualized skeletal structures. Prostate is surgically absent. IMPRESSION: 1. 6.6 x 5 cm enhancing pancreatic tail mass with associated tumor thrombus that occludes the splenic vein. This is consistent with a neoplasm. Although statistically this represents an adenocarcinoma, the imaging appearance raises the possibility of a malignant pancreatic islet cell tumor. GI consultation is recommended. 2. Numerous hypervascular hepatic metastases that measure up to 6.9 x 6.5 cm. ACT 112: Negative or not required by law. Electronically signed by: Kehinde Caro M.D. 10/13/2020 3:25 PM PG Care Time/CCT Total # of Minutes Spent Total Time Spent with Patient: Total time spent is greater than 50% in coordination of care (as documented) at patient's floor/unit and/or counseling patient: Coding Level of Care Code 29435 Inpt Consult Level 3 Diagnoses Pancreatic mass K86.89
[2020-10-14] MEDS ORDERED: POTASSIUM PHOSPHATE 24 MMOL in SODIUM CHLORIDE 0.9% 500 ML IV ONE (11:30)
[2020-10-14] MEDS: NSS + 20MEQ KCL 20 MEQ/1,000 ML BAG IV SCH (12:25)
--- NOTE | 2020-10-14 13:18 | Hospitalist Progress Note ---
Date of Service October 14, 2020 Assessment & Plan (1) Pancreatic mass: With liver mets For liver US with radiology tomorrow Gen surg c/s, for Mediport placement tomorrow GI c/s pending, uncertain if able to bx with ERCP given pancreatic tail location (2) Hypercalcemia: Workup suggests related to malignancy Continues to improve, but still elevated s/p IVF and zolendronic acid x1 Resume IVF, pt is asx currently Onc c/s, several labs still pending, planning for salvage therapy, but awaiting path for formal decisions CT AP noted for pancreatic tail mass, liver mets CT chest neg for pulm mets Bone scan neg for mets PTH is low, vit D WNL HypoPhos, hypoK--replace, monitor (3) History of prostate cancer: PSA essentially neg (4) Hypokalemia: Monitor (5) Insulin dependent diabetes mellitus: A1c 6.8 Pt notes he has been working on portion control, diet, exercise and has lost weight in the last few months (6) Hypertension: continue home meds (7) Hypophosphatemia: Monitor (8) NAZIA (obstructive sleep apnea): CPAP as at home, using [facility] provided equipment currently Describes daytime somnolence and overall fatigue Possibly needs settings adjusted? Overnight pulse ox notes desats although this was done on RA and not CPAP despite an order for this, likely needs repeat study vs follow up with pulm/sleep medicine for setting adjustment if this is a major concern for pt for QOL issues (9) DVT prophylaxis: Lovenox for DVT proph, will be held in AM for procedures but should be resumed once it is safe to do so Admission and Anticipated Discharge Date Admission Date: October 12, 2020 Subjective Pt states he feels at his usual. Tolerating PO without issue. Pt denies fever, SOB, chest pain, abd pain, n/v/c/d, LE pain or swelling. His is present to discuss dx. Pt became tearful telling her. Nursing reports pt has been walking the halls and has been tearful with her also. Review of Systems Review of Systems: Pertinent positives and negatives reviewed in HPI--all others negative Physical Exam Constitutional: WD/WN, vitals as above + obese Eyes: normal visual paz by confrontation and + anicteric sclerae Neck: normal visual inspection and trachea midline Respiratory: normal respiratory effort, lungs clear to auscultation Cardiovascular: Rate/Rhythm: regular rate and regular rhythm Gastrointestinal (Abdomen): Inspection/Auscultation: abdomen not distended Percussion/Palpation: abdomen soft; abdomen nontender Musculoskeletal: Head/Neck/Chest: normocephalic and head atraumatic Skin: no rashes, warm and dry Neurologic: awake; not confused Speech / Cognition: normal speech Psychiatric: A+Ox3, euthymic affect (did become tearful) Results & Data Results & Data ([facility]) Vital Signs (Past 12 Hours) Vital Signs Temp Pulse Pulse Pulse Resp BP BP 10/14/20 11:55 36.4 C L 88 20 137/80 10/14/20 07:49 36.8 C 83 20 143/77 H 10/14/20 07:03 85 10/14/20 05:18 77 10/14/20 04:13 37.5 C 69 18 138/71 10/14/20 02:21 66 10/14/20 02:12 71 Pulse Ox Pulse Ox 10/14/20 11:55 96 10/14/20 07:49 96 10/14/20 07:03 10/14/20 05:18 93 10/14/20 04:13 98 10/14/20 02:21 10/14/20 02:12 93 PG Care Time/CCT Total # of Minutes Spent Total Time Spent with Patient: Total time spent is greater than 50% in coordination of care (as documented) at patient's floor/unit and/or counseling patient: Coding Level of Care Code 90926 Subseq Hosp Care Lvl 3 Diagnoses Pancreatic mass K86.89 Hypercalcemia E83.52 History of prostate cancer Z85.46 Hypokalemia E87.6 Insulin dependent diabetes mellitus Hypertension I10 Hypophosphatemia E83.39 NAZIA (obstructive sleep apnea) G47.33 DVT prophylaxis Z29.9
[2020-10-14] MEDS: ATORVASTATIN 10 MG TAB PO SCH (20:08)
[2020-10-14] MEDS ORDERED: Nursing to Pharmacy Communication SCH (20:45)
[2020-10-14] MEDS ORDERED: INSULIN GLARGINE SOLOSTAR 100 UNITS/ML 3 ML PEN SC ONE (21:15)
[2020-10-15] MEDS: NSS + 20MEQ KCL 20 MEQ/1,000 ML BAG IV SCH ×2 (00:16→14:33)
[2020-10-15] MEDS: INSULIN ASPART 100 UNITS/ML 3 ML PEN SC SCH ×3 (06:12→21:17)
[2020-10-15 06:18] LABS: Basophils # (auto) 0.01 K/uL (0-0.2); Basophils % (auto) 0.2 %; Eosinophils # (auto) 0.05 K/uL (0-0.5); Eosinophils % (auto) 0.9 %; Hematocrit (blood only) 31.2 % (42-52); Hemoglobin 10.8 g/dL (14.0-18.0); Immature Granulocytes # (auto) 0.01 K/uL (0.00-0.02); Immature Granulocytes % (auto) 0.2 %; Lymphocytes # (auto) 1.12 K/uL (1.2-3.4); Lymphocytes % (auto) 19.7 %; Mean Corpuscular Hemoglobin 29.6 pg (25-34); Mean Corpuscular Hgb Conc 34.6 g/dL (32-36); Mean Corpuscular Volume 85.5 fL (80-100); Mean Platelet Volume 11.8 fL (7.4-10.4); Monocytes # (auto) 0.47 K/uL (0.11-0.59); Monocytes % (auto) 8.3 %; Neutrophils # (auto) 4.03 K/uL (1.4-6.5); Neutrophils % (auto) 70.7 %; Platelet Count 130 K/uL (130-400); RDW Coefficient of Variation 12.8 % (11.5-14.5); Red Blood Count 3.65 M/uL (4.7-6.1); White Blood Count 5.69 K/uL (4.8-10.8)
[2020-10-15 06:24] LABS: INR 1.2 (0.9-1.1); Prothrombin Time 12.3 Seconds (9.0-12.0)
[2020-10-15] MEDS ORDERED: Nursing to Pharmacy Communication SCH ×2 (06:30→14:45)
[2020-10-15 06:47] LABS: BUN Creatinine Ratio 8.1 (10-20); Calcium 10.6 mg/dl (8.5-10.1); Creatinine Clr Calc Pharmacy 84.9 ml/min; Est GFR (African American) 87.7; Est GFR (Non-African American) 75.7; Magnesium 1.8 mg/dl (1.8-2.4); Potassium 3.1 mmol/L (3.5-5.1)
[2020-10-15 07:02] LABS: Phosphorus 1.5 mg/dl (2.5-4.9)
[2020-10-15] MEDS ORDERED: POTASSIUM PHOS 3 MMOL/1 ML INFUSION IV STA (07:46)
[2020-10-15] MEDS ORDERED: POTASSIUM PHOSPHATE 30 MMOL in SODIUM CHLORIDE 0.9% 500 ML IV ONE (08:00)
[2020-10-15] MEDS ORDERED: SODIUM CHLORIDE 0.9% 1000ML 1,000 ML IV SCH (08:00)
--- NOTE | 2020-10-15 09:48 | Progress Notes ---
DATE: 10/15/2020 DIAGNOSES: 1. Probable metastatic pancreatic cancer. 2. Hypercalcemia, attributable to malignancy. 3. Type 2 diabetes mellitus. 4. Mild hypoalbuminemia. SUBJECTIVE: The patient is a pleasant 58-year-old gentleman admitted to [facility] within the past couple of days with hypercalcemia associated with malignancy. Clinically, seems to be doing well. Appreciate GI's input. According to Dr. Anderson's note, ERCP would not be an effective way to pursue a biopsy and therefore plans are underway for ultrasound guided liver biopsy later on today. General surgery is also on consultation for MediPort placement. Again, clinically the patient feels relatively well; however, reported low-grade fever overnight. He offers no complaint of pain. Nursing describes no overnight difficulties. OBJECTIVE: GENERAL: A very pleasant 60-year-old gentleman, awake, alert and appropriate, in no acute distress. VITAL SIGNS: Temperature 37.3, pulse 61, respiratory rate 20, blood pressure 147/76. SKIN: Without rash or lesion. HEENT: Oral mucosa without erythema or ulceration. HEART: Regular rate and rhythm. LUNGS: Clear to auscultation bilaterally. ABDOMEN: Soft, nontender, nondistended. EXTREMITIES: No clubbing, cyanosis or edema. NEUROLOGIC: Grossly intact. LABORATORY DATA: WBC count 5690, hemoglobin 10.8, platelet count 130,000. Sodium 139, potassium 3.1, chloride 110, carbon dioxide 23, creatinine 1.05, BUN 8, calcium 10.6, phosphorus 1.5. CA 19-9 is pending. IMPRESSION: 1. Probable metastatic pancreatic cancer. 2. Normocytic normochromic anemia. 3. Hypoalbuminemia. 4. Hypercalcemia associated with malignancy. 5. Type 2 diabetes mellitus. 6. Hypokalemia. PLAN: It is my pleasure to visit with the patient at bedside today. His spirits are actually quite good after receiving the news probable metastatic pancreatic cancer. Appreciate GI and general surgery's input and plans are underway for formal ultrasound-guided biopsy of one of the liver lesions. MediPort will also be installed. This gentleman is being followed by Dr. Rahul segura [facility] who plans on discussing salvage chemotherapy upon outpatient followup. I see no reason why he cannot go home after getting his electrolytes corrected. Fortunately, he is not experiencing significant pain issues at this time as his calcium is much better controlled. I have nothing further to add and will officially sign off and anticipate the patient's followup with Dr. Anderson in the near future. Thank you very much for allowing me to participate in his care.
--- NOTE | 2020-10-15 09:56 | Ultrasound Report ---
ULTRASOUND-GUIDED HEPATIC CORE BIOPSY CLINICAL HISTORY: Hepatic masses COMPARISON STUDY: CT scan dated 10/13/2020 FINDINGS: A timeout was performed. The risks the procedure were explained the patient and informed consent was obtained. The patient was prepped and draped in sterile fashion. The skin was anesthetized with 1% lidocaine. Under ultrasound guidance, an 18-gauge 2 cm throw core biopsy sample was obtained from the mass withi n the right lobe of the liver posterior inferiorly. A touch prep was obtained which revealed lesional tissue. There were no immediate complications. IMPRESSION: 1. Successful ultrasound-guided core biopsy of a right hepatic lobe mass. ACT 112: Negative or not required by law. Electronically signed by: Ivan Finch M.D. 10/15/2020 9:55 AM
--- NOTE | 2020-10-15 11:25 | History & Physical Bridge Note ---
Date of Service October 15, 2020 History & Physical Bridge Note I have examined the patient, reviewed the History & Physical and in the interval since the performance of the History & Physical I have noted the following changes of clinical significance: no changes noted
[2020-10-15] MEDS ORDERED: fentaNYL citrate 100 MCG/2 ML VIAL ONE (11:50)
[2020-10-15] MEDS ORDERED: MIDAZOLAM HCL 1 MG/ML 2ML VIAL ONE (11:50)
[2020-10-15] MEDS ORDERED: PROPOFOL IV EMULSION 10 MG/ML 20 ML VIAL IV ONE (11:50)
[2020-10-15] MEDS ORDERED: KETAMINE 50 MG/5 ML SYRINGE ONE (11:51)
[2020-10-15] MEDS ORDERED: INSULIN ASPART 100 UNITS/ML 3 ML PEN SC SCH (12:00)
[2020-10-15] MEDS ORDERED: BUPIVACAINE/EPINEPHRINE 0.5% MPF 1:200,000 30 ML VIAL ONE (12:26)
[2020-10-15] MEDS ORDERED: HEPARIN (PORCINE) 1000 UNIT/ML 10 ML (CATH LAB USE ONLY) ONE (12:26)
--- NOTE | 2020-10-15 12:30 | Anesthesiology Consultation ---
Date of Service October 15, 2020 Assessment & Plan (1) Encounter for pre-operative examination: Chart Review Chart Review: Acceptable Risk for Surgery History Surgery Operation Date: 10/15/20 12:10 Proposed Procedures p Mediport Insertion - Juma Rubio DO Operation Date: 10/16/20 11:00 Proposed Procedures p Endoscopic Ultrasonography Lou - Benton Forman DO Height/Weight Height: 5 ft 6 in Weight: 111.5 kg Allergies Allergy/AdvReac Type Severity Reaction Status Date / Time Bactrim Allergy Unknown RASH Verified 08/13/15 08:50 sulfamethoxazole Allergy Unknown RASH Verified 10/12/20 16:58 trimethoprim Allergy Unknown RASH Verified 10/12/20 16:58 lisinopril AdvReac Mild hives Verified 10/12/20 16:58 Prinivil Allergy Unknown Uncoded 10/12/20 16:58 Medications Home Medications Medication Instructions Recorded Confirmed Last Taken Culturelle 1 cap PO QAM 08/31/18 10/12/20 10/12/20 Lantus U-100 Insulin 80 unit SUBCUT HS 08/31/18 10/12/20 10/11/20 amlodipine 10 mg PO QAM 08/31/18 10/12/20 10/12/20 atorvastatin 10 mg PO HS 08/31/18 10/12/20 10/11/20 cholecalciferol (vitamin D3) 2,000 unit PO BID 08/31/18 10/12/20 10/12/20 docusate sodium 100 mg PO QAM 08/31/18 10/12/20 10/12/20 insulin aspart U-100 [Novolog 1 sliding scale dose SUBCUT UD 08/31/18 10/12/20 10/12/20 U-100 Insulin aspart] metformin 1,000 mg PO BID 08/31/18 10/12/20 10/12/20 tadalafil [Cialis] 20 mg PO DAILY PRN 08/31/18 10/12/20 10/12/20 valsartan-hydrochlorothiazide 1 tab PO QAM 08/31/18 10/12/20 10/12/20 [Diovan HCT] Active Medications Generic Name Dose Route Start Last Admin Trade Name Freq PRN Reason Stop Dose Admin Amlodipine Besylate 10 mg 10/13/20 09:00 10/14/20 08:00 Amlodipine Besylate 5 Mg Tab PO 11/12/20 08:59 10 mg QAM PIPE Administration Atorvastatin Calcium 10 mg 10/12/20 21:00 10/14/20 20:08 Atorvastatin 10 Mg Tab PO 11/11/20 20:59 10 mg HS PIPE Administration Docusate Sodium 100 mg 10/13/20 09:00 10/14/20 08:01 Docusate Sodium 100 Mg Cap PO 11/12/20 08:59 Not Given QAM PIPE Enoxaparin Sodium 40 mg 10/13/20 09:00 10/14/20 08:01 Enoxaparin Inj 40 Mg/0.4 Ml Syr SQ 11/12/20 08:59 40 mg QAM PIPE Administration Potassium Chloride/Sodium Chloride 20 meq in 1,000 mls @ 80 mls/hr 10/14/20 11:30 10/15/20 00:16 Normal Saline W/20 Meq Kcl IV 11/13/20 11:29 80 mls/hr .[id number] PIPE Administration Potassium Phosphate 30 mmol/ 510 mls @ 88 mls/hr 10/15/20 08:00 10/15/20 08:50 Sodium Chloride IV 10/15/20 13:47 88 mls/hr ONE ONE Administration Insulin Aspart 0 units 10/15/20 12:00 10/15/20 11:27 Insulin Aspart 100 Units/Ml 3 Ml Pen SC 11/14/20 11:59 4 units Q6 PIPE Administration Insulin Glargine 80 units 10/13/20 21:00 10/13/20 20:27 Insulin Glargine Solostar 100 Units/Ml 3 Ml Pen SC 11/12/20 20:59 80 units HS PIPE Administration Lactobacillus Acidoph/Casei/Rhamnos 2 cap 10/13/20 09:00 10/14/20 08:00 Advanced Probiotic 1250 Mg Capsule PO 11/12/20 08:59 2 cap QAM PIPE Administration Protocol Valsartan 160 mg 10/13/20 09:00 10/14/20 08:00 Valsartan 80 Mg Tab PO 11/12/20 08:59 160 mg QAM PIPE Administration NPO Date Last Intake of Fluids: 10/14/20 Time Last Intake of Fluids: 23:45 Date Last Intake of Solids: 10/14/20 Time Last Intake of Solids: 18:30 Past Medical History Medical History Diabetes mellitus, type 2 Hyperlipidemia Hypertension Obesity, morbid Prostate cancer 2015--sx Sleep apnea cpap Past Family History Family History Grandmother Family history of diabetes mellitus paternal Father Family hx of colon cancer Past Surgical History Surgical History History of arthroscopy of right knee History of carpal tunnel release right wrist History of colonoscopy History of endoscopic sinus surgery History of prostate biopsy malignant History of prostatectomy 2015 History of repair of anterior cruciate ligament of right knee History of tympanoplasty of right ear Hx of vasectomy Social History Smoking Status: Never smoker Do You Dip or Chew Tobacco: No Hx Alcohol Use: Yes Alcohol type: beer alcohol intake frequency: a few times a month Alcohol Intake Frequency Comment: 1-2 cans of beer a week Hx Substance Use: No substance use type: does not use Physical Exam Vital Signs Last Vital Signs Temp 36.8 C 10/15/20 12:14 Pulse 65 10/15/20 12:14 Resp 20 10/15/20 12:14 BP 129/71 10/15/20 12:14 Pulse Ox 97 10/15/20 12:14 Testing Laboratory Results 10/15/20 05:35 10/15/20 05:35 PT 12.3 Seconds (9.0-12.0) H 10/15/20 05:35 INR 1.2 (0.9-1.1) H 10/15/20 05:35 Hemoglobin A1c 6.8 % (4.5-5.6) H 10/13/20 06:41 10/15/20 10/15/20 11:15 06:11 POC Glucose 176 H 143 H
[2020-10-15] MEDS ORDERED: ONDANSETRON INJ 2 MG/ML 2 ML VIAL IV PRN (12:35)
[2020-10-15] MEDS ORDERED: ATROPINE SULFATE 0.1 MG/ML 10ML SYR IV PRN (12:35)
[2020-10-15] MEDS ORDERED: fentaNYL citrate 100 MCG/2 ML VIAL IV PRN (12:35)
--- NOTE | 2020-10-15 12:35 | Hospitalist Progress Note ---
Date of Service October 15, 2020 Assessment & Plan (1) Pancreatic mass: With liver mets. Suspected pancreatic cancer primary. He underwent ultrasound guided liver biopsy earlier today. Gen surg will place Mediport today also. (2) Hypercalcemia: Workup suggests related to malignancy. Continue IV fluids and daily lab studies. He had zolendronic acid x1 Onc c/s, several labs still pending, planning for salvage therapy, but awaiting path for formal decisions CT AP noted for pancreatic tail mass, liver mets CT chest neg for pulm mets Bone scan neg for mets PTH is low, vit D WNL (3) History of prostate cancer: PSA essentially neg (4) Hypokalemia: Parenteral and oral replacement. Serial lab studies. (5) Insulin dependent diabetes mellitus: A1c 6.8 Pt notes he has been working on portion control, diet, exercise and has lost weight in the last few months (6) Hypertension: continue home meds (7) Hypophosphatemia: Parenteral replacement. Serial lab studies (8) NAZIA (obstructive sleep apnea): CPAP as at home, using [facility] provided equipment currently Describes daytime somnolence and overall fatigue Overnight pulse ox notes desats although this was done on RA and not CPAP d espite an order for this, likely needs repeat study vs follow up with pulm/sleep medicine for setting adjustment if this is a major concern for pt for QOL issues (9) DVT prophylaxis: Lovenox for DVT proph, will be held in AM for procedures but should be res umed once it is safe to do so Admission and Anticipated Discharge Date Admission Date: October 12, 2020 Subjective The patient was seen after his ultrasound-guided liver biopsy this morning. He is alert and oriented and stable. Formal GI consultation is not required at this time and has been discontinued. Calcium is down to 10.6. Potassium remains low and phosphorus is also low. Parenteral potassium phosphate ordered along with oral potassium replacement. Serial lab studies indicated. Review of Systems Review of Systems: All systems reviewed & are unremarkable except as noted in HPI & below Physical Exam Physical Exam: General-alert and oriented x3, no fevers, no chills HEENT-head atraumatic and normocephalic, TMs intact bilaterally, pupils equal and reactive to light, extraocular muscles intact Neck-no lymphadenopathy or thyromegaly, trachea midline Chest-clear to auscultation percussion. No rales wheezing or rhonchi Cardiac-regular rate and rhythm, normal S1 and S2, no murmurs Abdomen-normal bowel sounds, nontender, no hepatosplenomegaly Extremities-no cyanosis, clubbing, or edema Neuro-cranial nerves II through XII intact, motor and sensory function within normal limits, strength symmetrical 5/5, no focal deficits Psych-normal affect, normal mood Results & Data Results & Data ([facility]) Vital Signs (Past 12 Hours) Vital Signs Temp Pulse Pulse Resp BP BP Pulse Ox 10/15/20 12:14 36.8 C 65 20 129/71 129/71 97 10/15/20 11:17 36.6 C 63 18 121/65 96 10/15/20 10:45 36.7 C 70 111/66 95 10/15/20 10:15 36.8 C 79 104/55 L 95 10/15/20 09:44 36.7 C 73 135/74 97 10/15/20 07:00 36.8 C 77 18 133/73 95 10/15/20 02:36 61 20 95 10/15/20 02:15 37.3 C 68 16 147/76 H 97 Laboratory Results 10/15/20 05:35 10/15/20 05:35 PG Care Time/CCT Total # of Minutes Spent Total Time Spent with Patient: Total time spent is greater than 50% in coordination of care (as documented) at patient's floor/unit and/or counseling patient: Coding Level of Care Code 14188 Subseq Hosp Care Lvl 3 Diagnoses Pancreatic mass K86.89 Hypercalcemia E83.52 History of prostate cancer Z85.46 Hypokalemia E87.6 Insulin dependent diabetes mellitus Hypertension I10 Hypophosphatemia E83.39 NAZIA (obstructive sleep apnea) G47.33 DVT prophylaxis Z29.9
[2020-10-15] MEDS ORDERED: GLYCOPYRROLATE 0.2 MG/ML VIAL ONE (13:03)
[2020-10-15] MEDS ORDERED: ceFAZolin 2000MG 2,000 MG/15 ML SYR IV ONE (13:05)
--- NOTE | 2020-10-15 13:54 | Operative Report ---
PG Post Operative Report Pre & Post Diagnosis Operation Date: 10/15/20 12:10 Pre-Op Diagnosis: Need for Long-Term Intravenous Access Post-Op Diagnosis: Need for Long-Term Intravenous Access Operation Date: 10/16/20 11:00 <No data on this case meets the specified criteria> I identified the patient and participated in the time-out.: Yes Procedure Operation Date: 10/15/20 12:10 Actual Procedures p Insertion of Infusaport Left Subclavian(Left) - Juma Rubio DO Operation Date: 10/16/20 11:00 <No data on this case meets the specified criteria> Surgeon Juma Rubio DO Verify Rep n/a Estimated Blood Loss 5 Findings Consistent with Post-Op Diagnosis Specimens none Description of Procedure After informed consent was obtained the patient was taken to the operating room and placed in supine position. IV sedation was administered by anesthesia and titrated to effect. Both arms were then tucked. The upper chest area was sterilely prepped and draped in usual fashion. I used Marcaine with epinephrine to localize the skin just below the angle of the clavicle. I also used Marcaine to localize the periosteum of the clavicle. We then used a 15 blade scalpel to make a horizontal incision. I carried this down through the soft tissue using electrocautery to the pectoralis fascia. I then used blunt finger dissection to create a small pocket. I then used an 18-gauge finder needle to access the subclavian vein without difficulty. A guidewire was advanced under fluoroscopy into the superior vena cava. We then measured and cut the catheter to appropriate size and then thoroughly flushed the entire system with a heparin solution. Next we advanced a vascular dilator with peel-away sheath over the guidewire again using fluoroscopy. We then pulled out the dilator as well as the guidewire leaving the peel-away sheath in place. The catheter was advanced through the peel-away sheath and the port itself was placed into the housing pocket. We then peeled the sheath away leaving the catheter. We verified position using fluoroscopy. The catheter was then flushed with heparin solution. It withdrew dark venous blood easily. The port was then secured to the muscle using 0 Ethibond with 3 point fixation. The wound was thoroughly irrigated and closed in 2 layers using 3-0 Monocryl for both layers. A sterile dressing was applied. The patient was awakened and transferred to recovery in stable condition. A postoperative portable chest x-ray is currently pending to rule out pneumothorax and the verify catheter position. I attest to the content of the Intraoperative Record and any orders documented therein. Any exceptions are noted below. I attest to the content of the Intraoperative Record and any orders documented therein. Any exceptions are noted below.
--- NOTE | 2020-10-15 14:14 | XRay Report ---
XR chest 1V portable CLINICAL HISTORY: Post-op Port placement COMPARISON STUDY: 09/30/2020 FINDINGS: The heart is borderline enlarged. There is a left subclavian A-Port catheter. The tip proje cts over the superior vena cava. There is no pneumothorax. There is no failure. There is no focal pul monary consolidation.[ IMPRESSION: No evidence of pneumothorax status post placement of a left subclavian A-Port catheter ACT 112: Negative or not required by law. Electronically signed by: Ivan Finch M.D. 10/15/2020 2:13 PM
[2020-10-15] MEDS: DOCUSATE SODIUM 100 MG CAP PO SCH (14:28)
[2020-10-15] MEDS: amLODIPine BESYLATE 5 MG TAB PO SCH (14:28)
[2020-10-15] MEDS: VALSARTAN 80 MG TAB PO SCH (14:28)
[2020-10-15] MEDS: ADVANCED PROBIOTIC 1250 MG CAPSULE PO SCH (14:29)
[2020-10-15] MEDS: POTASSIUM CHLORIDE 10 MEQ TABCR PO SCH ×2 (14:31→21:18)
--- NOTE | 2020-10-15 15:06 | Anesthesiology Progress Note ---
Date of Service October 15, 2020 Anesthesia Post Procedure Vital Signs Vital Signs: Temp Pulse Pulse Pulse Pulse Resp BP 10/15/20 14:39 36.6 C 75 10/15/20 14:00 36.6 C 78 13 10/15/20 13:50 74 21 10/15/20 13:40 73 18 10/15/20 13:30 77 21 10/15/20 13:24 36.4 C L 87 14 10/15/20 12:14 36.8 C 65 20 129/71 10/15/20 11:17 36.6 C 63 18 10/15/20 10:45 36.7 C 70 10/15/20 10:15 36.8 C 79 10/15/20 09:44 36.7 C 73 10/15/20 07:00 36.8 C 77 18 10/15/20 02:36 61 20 10/15/20 02:15 37.3 C 68 16 10/14/20 23:33 37.2 C 77 20 10/14/20 22:20 78 16 10/14/20 19:00 37.7 C H 75 18 104/61 10/14/20 16:14 37.1 C 10/14/20 15:12 37.9 C H 76 18 128/67 BP Pulse Ox 10/15/20 14:39 108/64 96 10/15/20 14:00 114/62 95 10/15/20 13:50 117/61 95 10/15/20 13:40 109/62 94 10/15/20 13:30 114/63 94 10/15/20 13:24 114/63 98 10/15/20 12:14 129/71 97 10/15/20 11:17 121/65 96 10/15/20 10:45 111/66 95 10/15/20 10:15 104/55 L 95 10/15/20 09:44 135/74 97 10/15/20 07:00 133/73 95 10/15/20 02:36 95 10/15/20 02:15 147/76 H 97 10/14/20 23:33 124/70 97 10/14/20 22:20 96 10/14/20 19:00 95 10/14/20 16:14 10/14/20 15:12 97 Transfer of Care Handoff Completed per policy Notes Mental Status: alert / awake / arousable Patient Amnestic to Procedure: Yes Nausea / Vomiting: adequately controlled Pain: adequately controlled Airway Patency, RR, SpO2: stable & adequate BP & HR: stable & adequate Hydration State: stable & adequate Anesthetic Complications: no major complications apparent
[2020-10-15] MEDS: INSULIN GLARGINE SOLOSTAR 100 UNITS/ML 3 ML PEN SC SCH (21:16)
[2020-10-15] MEDS: ATORVASTATIN 10 MG TAB PO SCH (21:18)
[2020-10-16] MEDS: NSS + 20MEQ KCL 20 MEQ/1,000 ML BAG IV SCH (02:36)
[2020-10-16 06:55] LABS: BUN Creatinine Ratio 9.6 (10-20); Calcium 9.5 mg/dl (8.5-10.1); Creatinine Clr Calc Pharmacy 83.1 ml/min; Est GFR (African American) 84.8; Est GFR (Non-African American) 73.2; Phosphorus 1.6 mg/dl (2.5-4.9); Potassium 4.1 mmol/L (3.5-5.1)
[2020-10-16] MEDS: amLODIPine BESYLATE 5 MG TAB PO SCH (07:58)
[2020-10-16] MEDS: VALSARTAN 80 MG TAB PO SCH (07:58)
[2020-10-16] MEDS: POTASSIUM CHLORIDE 10 MEQ TABCR PO SCH (07:58)
[2020-10-16] MEDS: ADVANCED PROBIOTIC 1250 MG CAPSULE PO SCH (07:59)
[2020-10-16] MEDS: DOCUSATE SODIUM 100 MG CAP PO SCH (07:59)
[2020-10-16] MEDS: INSULIN ASPART 100 UNITS/ML 3 ML PEN SC SCH ×2 (08:02→12:28)
[2020-10-16] MEDS: ENOXAPARIN INJ 40 MG/0.4 ML SYR SQ SCH (08:03)
--- NOTE | 2020-10-16 09:15 | Surgery Progress Note ---
Date of Service October 16, 2020 Assessment & Plan (1) Pancreatic mass: no issues with port. to use call me with any issues/questions. Admission and Anticipated Discharge Date Admission Date: October 12, 2020 Subjective feeling well. some soreness at port site but overall feeling well. Physical Exam Physical Exam: alert. nad port in good position. dressing dry. wound looks good. Results & Data ([facility]) Vital Signs (Past 12 Hours) Vital Signs Temp Pulse Pulse Resp BP Pulse Ox 10/16/20 07:33 63 10/16/20 07:00 36.7 C 74 18 125/72 95 10/16/20 04:00 37.1 C 77 18 109/58 L 96 10/16/20 02:10 58 L 18 96 10/16/20 00:00 36.9 C 84 18 112/69 98 10/15/20 23:33 59 L 10/15/20 22:22 58 L 16 97 PG Care Time/CCT Total # of Minutes Spent Total Time Spent with Patient: Total time spent is greater than 50% in coordination of care (as documented) at patient's floor/unit and/or counseling patient: Coding Level of Care Code None Diagnoses Pancreatic mass K86.89
--- NOTE | 2020-10-16 11:13 | Discharge Summary ---
Date of Service October 16, 2020 Admission HPI Per Admitting Provider Mr. Noe is a 60 yo M with a PMHx of prostate cancer status post prostatectomy 5 years ago who presented to the emergency department at the direction of Dr. Anderson from the [facility] center earlier today. Mr. Noe was referred to the cancer center for evaluation of hypercalcemia detected on routine labwork ordered by his PCP KIRSTIN Winters. At his appointment with Dr. Anderson today at the [facility] center, Mr. Noe's calcium level returned at 14.3, prompting Dr. Anderson's advice to come to the ED. Mr. Noe reports a history of fatigue over the past month, stating "all I ever seem to want to do is sleep." He reports a weight loss of 14 pounds over the past 3 months, but this was intentional (he has been walking more and trying to cut back on sugar/carb intake due to an elevated HbA1c). He also endorses const ipation. He denies any muscle weakness, bone pain, or diminished concentration. He has had his PSA level checked annually since have his prostatectomy and states all his levels have been normal. He reports developing some urinary incontinence over the past two months. Aside from his prostate cancer, he has no other personal history of cancer diagnoses. Family history - Father diagnosed with colon cancer at age 72. Mr. Noe has had several colonoscopies - most recent in 2019. Meds- he is on Valsartan-HCTZ combo for HTN. He takes a vitamin D3 supplement. He is not on a calcium supplement. Not on lithium. ED Course: Ca level 15.7, ionized Ca at 1.9. Albumin normal at 4.0. Mag normal. Phos low at 1.8. Potassium low at 3.0. WBC normal. Hgb mildly low at 13.2. UA pending. UPEP and SPEP pending. IgG low, IgA low, IGM normal. Serum and Urine immunofixation and free kappa and jerome light chains pending. CXR showing no active disease. EKG normal sinus rhythm at 75 bpm without ectopy or ST segment changes. He was bolused with 1 liter of normal saline. Principal Diagnosis Pancreatic cancer with liver metastases, hypercalcemia of malignancy Discharge Exam General-alert and oriented x3, no fevers, no chills HEENT-head atraumatic and normocephalic, TMs intact bilaterally, pupils equal and reactive to light, extraocular muscles intact Neck-no lymphadenopathy or thyromegaly, trachea midline Chest-clear to auscultation percussion. No rales wheezing or rhonchi Cardiac-regular rate and rhythm, normal S1 and S2, no murmurs Abdomen-normal bowel sounds, nontender, no hepatosplenomegaly Extremities-no cyanosis, clubbing, or edema Neuro-cranial nerves II through XII intact, motor and sensory function within normal limits, strength symmetrical 5/5, no focal deficits Psych-normal affect, normal mood Discharge Data Allergies Allergy/AdvReac Type Severity Reaction Status Date / Time Bactrim Allergy Unknown RASH Verified 08/13/15 08:50 sulfamethoxazole Allergy Unknown RASH Verified 10/12/20 16:58 trimethoprim Allergy Unknown RASH Verified 10/12/20 16:58 lisinopril AdvReac Mild hives Verified 10/12/20 16:58 Prinivil Allergy Unknown Uncoded 10/12/20 16:58 Consultations 10/12/20 16:37 ED Decision to Admit Stat 10/12/20 19:49 Consult Hematology Routine 10/14/20 09:02 Consult General Surgery Routine Procedures Performed Operation Date: 10/15/20 12:10 Actual Procedures p Insertion of Infusaport Left Subclavian(Left) - Juma Rubio, Operation Date: 10/16/20 11:00 <No data on this case meets the specified criteria> Ordered Studies 10/13/20 08:51 CT abd pelvis oral and IV con Routine CT chest w con Routine 10/15/20 09:00 US biopsy liver Routine 10/15/20 12:10 FL fluoro (infusaport) to 1 hr Routine Hospital Course (1) Pancreatic mass: With liver mets. Suspected pancreatic cancer primary. He underwent ultrasound guided liver biopsy. Pathology was nondiagnostic. He will need further studies as an outpatient. He had a venous access port placed October 15. (2) Hypercalcemia: Workup suggests related to malignancy. Treated with IV fluids and zolendronic acid x1. Resolved Onc consult appreciated. (3) History of prostate cancer: PSA essentially neg (4) Hypokalemia: Parenteral and oral replacement. Serial lab studies. (5) Insulin dependent diabetes mellitus: A1c 6.8 Pt notes he has been working on portion control, diet, exercise and has lost weight in the last few months (6) Hypertension: continue home meds (7) Hypophosphatemia: Parenteral replacement. Serial lab studies (8) NAZIA (obstructive sleep apnea): CPAP as at home, using [facility] provided equipment currently Describes daytime somnolence and overall fatigue Overnight pulse ox notes desats although this was done on RA and not CPAP despite an order for this, likely needs repeat study vs follow up with pulm/sleep medicine for setting adjustment if this is a major concern for pt for QOL issues (9) DVT prophylaxis: Lovenox for DVT proph, will be held in AM for procedures but should be resumed once it is safe to do so Total Time Total Time Spent Total Time Spent (In Minutes): 35 minutes Total Time Includes: Examination of the Patient, Discharge Planning and Medication Reconciliation Discharge Plan Discharge Items Patient Disposition: Home - Self-Care Reason For Visit: HYPERCALCEMIA--- LIVER BIOP Discharge Diagnosis: Pancreatic cancer with liver mets, hypercalcemia of malignancy Condition on Discharge: Good Activity: Resume your previous activity Non-emergency contact: Primary Care Provider Call non-emergency contact if: you have any medication questions and your symptoms worsen Follow-up/Referrals: Juma Rubio, DO [Surgeon] - (Please call your surgeon's office to schedule a follow-up appointment for 2 weeks.) Kelly Dupree CRNP [Primary Care Provider] - 10/19/20 11:10 am Diet: Carb Consistent or DM2 Addtl Attending Provider Instructions: follow up with Dr. Rigoberto Preciado on Oct 21 Pending Studies at Discharge: No Stand-Alone Forms: My [facility], Smoking Cessation Medications and DC Order Prescriptions: New polyethylene glycol 3350 [Miralax] 17 gram Powder In Packet 17 g PO DAILY MDD 34 grams PRN (Reason: constipation) Qty: 30 RF: 0 Continued Lantus U-100 Insulin 100 unit/mL Solution 80 unit SUBCUT HS RF: 0 atorvastatin 10 mg Tablet 10 mg PO HS RF: 0 valsartan-hydrochlorothiazide [Diovan HCT] 160-12.5 mg Tablet 1 tab PO QAM RF: 0 amlodipine 10 mg Tablet 10 mg PO QAM RF: 0 metformin 1,000 mg Tablet 1,000 mg PO BID RF: 0 tadalafil [Cialis] 20 mg Tablet 20 mg PO DAILY PRN (Reason: Sexual Activity) RF: 0 cholecalciferol (vitamin D3) 2,000 unit Tablet 2,000 unit PO BID RF: 0 Discontinued insulin aspart U-100 [Novolog U-100 Insulin aspart] 100 unit/mL Solution 1 sliding scale dose SUBCUT UD RF: 0 Culturelle 10 billion cell Capsule 1 cap PO QAM RF: 0 docusate sodium 100 mg Tablet 100 mg PO QAM RF: 0 Discharge Orders: Discharge Order (Routine); Ordered 10/16/20 Ordered By: Wyatt Ramirez/Other Patient Handouts: Managing Type 2 Diabetes Admission Data Admit Date/Time: 10/12/20 19:38 Attending Provider: Wyatt Zamarripa Admit Provider: Nichole Clarke Primary Care Provider: Kelly Dupree Other Providers: Vitaliy Rao ; Rahul Anderson ; Wyatt Llamas Coding Level of Care Code D/C Day Management >30 mins Diagnoses Pancreatic mass K86.89 Hypercalcemia E83.52 History of prostate cancer Z85.46 Hypokalemia E87.6 Insulin dependent diabetes mellitus Hypertension I10 Hypophosphatemia E83.39 NAZIA (obstructive sleep apnea) G47.33 DVT prophylaxis Z29.9
== END 2020-10-16 13:00 | disposition home or self-care (01) | DRG 436 ==
LOC: ED 14:55 → 2N 18:58 → SUATTDRO 19:38 → 2N 19:38